=== PATIENT | female | born 1950 | race Caucasian/White ===

== ENCOUNTER 2020-10-03 11:29 | Outpatient (CLI) | payer MEDICARE, BC ==
--- NOTE | 2020-10-03 13:45 | MRI ---
MRI BRAIN WITH AND WITHOUT CONTRAST: DATE: 10/03/2020. HISTORY: A 70-year-old female with ICD-10: I61.9, hemorrhagic cerebrovascular accident. COMPARISON: No prior imaging study of any modality of any body part available. FINDINGS: There is an approximately 3.6 x 2.6 x 2.9 cm irregularly shaped hemorrhagic mass centered in the left basal ganglia, deeply indenting the frontal horn of the left lateral ventricle. It has a T1 hyperin tense and T2 hypointense (intracellular methemoglobin) rim, and a central component that is T1 interm ediate to hypointense, and mixed T2 hyperintense and hypointense, and mixed FLAIR hypointense and volodymyr y hyperintense (deoxyhemoglobin and/or necrosis). It is surrounded by a moderate-sized region of cyt otoxic edema. Very close to its lateral surface, there is a ribbon of T1 hyperintensity in the left insula consistent with petechial hemorrhage. Hemorrhage extends superior to the main hematoma into t he left centrum semiovale. The intrinsically T1 hyperintense areas are difficult to evaluate for enhancement. No enhancement ou tside of the intrinsically T1 hyperintense regions are noted. The ventricles are dilated, either on the basis of central atrophy or normal-pressure hydrocephalus. Confluent periventricular white matter FLAIR hyperintensity could all represent chronic ischemic whi te matter changes or a combination of such chronic changes and transependymal migration of CSF. No midline shift. There is a tiny focus of restricted diffusion in the left cerebellar hemisphere consistent with an ac lilian tiny lacunar infarction there. There is a 1 x 7 cm focus of mild-moderate T2 and FLAIR hyperintensity at the left thalamus, with no enhancement or diffusion restriction. IMPRESSION: 1. A moderately large left basal ganglia hemorrhagic mass, either primary hypertensive hemorrhage or less likely hemorrhagic neoplasm. 2. Recommend serial followup MRIs of the brain with and without contrast, beginning in 1-3 months. 3. A Punctate tiny acute left cerebellar lacunar infarction. 4. A 1 cm left thalamic lesion of uncertain etiology; perhaps a subacute lacunar infarction. DOUGLAS eLe POS: [facility]
== END 2020-10-03 11:30 | disposition home or self-care (01) ==
LOC: MRI 11:29
PROVIDERS: ATTEND Surgery
DX: I61.9 Nontraumatic intracerebral hemorrhage, unspecified (principal); Z20.828 Contact with and (suspected) exposure to other viral communicable diseases
CPT/HCPCS: 70553; 87635; C9803; U0003

== ENCOUNTER 2021-10-03 21:03 | Inpatient (IN) | payer MEDICARE, BC ==
[2021-10-03] MEDS ORDERED: Norepinephrine 8 MG/0.9% NS 250 ML ONE (21:11)
[2021-10-03] MEDS ORDERED: Vancomycin 1 GM/200 ML BAG ONE (21:33)
[2021-10-03] MEDS ORDERED: Cefepime 2 GM VIAL ONE (21:33)
[2021-10-03 21:53] LABS: ALT (SGPT) 21 U/L (8-55); AST (SGOT) 19 U/L (5-34); Albumin 3.1 g/dL (3.4-4.8); Alkaline Phosphatase 77 U/L (40-110); Anion Gap 16 mmol/L (10-20); BUN (Urea Nitrogen) 43 mg/dL (9.8-20.1); Bilirubin, Total 0.8 mg/dL (0.2-1.2); Calc. Creatinine Clearance 0 mL/min (70-130); Calcium 8.1 mg/dL (7.8-10.44); Carbon Dioxide 23 mmol/L (23-31); Chloride 115 mmol/L (98-107); Globulin 2.9 g/dL (2.4-3.5); Glucose 149 mg/dL (83-110); Potassium 3.9 mmol/L (3.5-5.1); Sodium 150 mmol/L (136-145)
[2021-10-03 22:08] LABS: Bacteria/HPF None Seen HPF (None Seen); Bilirubin Negative (Negative); Blood, Urine Negative (Negative); Clarity Turbid (Clear); Glucose, Urine (Dipstick) Normal (Negative); Ketone, Urine Negative (Negative); Leukocyte Negative Leu/uL (Negative); Nitrite Negative (Negative); Protein, Urine (Dipstick) 30 mg/dL (Neg-Trace); RBC/HPF 0-3 HPF (0-3); Specific Gravity, Urine 1.023 (1.002-1.036); Squamous Epithelial 0-3 HPF (0-3); Urobilinogen 3 mg/dL (Less than 2); WBC/HPF 0-3 HPF (0-3); pH, Urine 5.5 (5.0-9.0)
[2021-10-03 22:20] LABS: Band 22 % (5-11); Eosinophils 1 % (0-10); Hemoglobin 15.5 g/dL (12.0-16.0); Lymphocytes 4 % (21-51); MDiff Complete? YES; Mean Corpuscular HGB CONC 32.4 g/dL (32.0-36.0); Mean Corpuscular Hemoglobin 31.6 pg (27.0-31.0); Mean Corpuscular Volume 97.6 fL (78.0-98.0); Mean Platelet Volume 9.6 fL (7.4-10.4); Metamyelocyte 1 % (0-0); Monocytes 3 % (0-10); Neutrophil 69 % (42-75); Platelet Count 276 thou/uL (130-400); Platelet Morphology Comment Appears Adequate; RBC Distribution Width 14.3 % (11.5-14.5); RBC Morphology Normal; White Blood Cell (WBC) Count 15.7 thou/uL (4.8-10.8)
[2021-10-03 22:34] LABS: Calcium Oxalate Crystals 2+ HPF (None Seen)
[2021-10-03 22:52] LABS: SARS-CoV-2 NAA Rapid Test Not Detected (NotDetected)
[2021-10-03] MEDS ORDERED: Acetaminophen 650 MG Suppository ONE (23:09)
[2021-10-04 00:31] LABS: Lactic Acid 1.8 mmol/L (0.5-2.2)
[2021-10-04] MEDS ORDERED: Ondansetron ODT 4 MG TAB PO PRN (00:35)
[2021-10-04] MEDS ORDERED: Ondansetron PF 4 MG/2 ML Vial IVP PRN (00:35)
[2021-10-04] MEDS ORDERED: Acetaminophen 650 MG Suppository PR PRN (00:35)
[2021-10-04] MEDS ORDERED: Acetaminophen 325 MG TAB PO PRN (00:35)
[2021-10-04] MEDS ORDERED: Dextrose 5 % And 0.9 % NaCl 1,000 ML IV SCH (01:15)
[2021-10-04 01:22] VITALS: BMI 25.9
[2021-10-04] MEDS ORDERED: Norepinephrine 8 MG/0.9% NS 250 ML IVPB SCH (04:00)
[2021-10-04] MEDS ORDERED: Sodium Chloride 0.9% 1,000 ML IV SCH ×2 (04:00→04:15)
[2021-10-04 04:25] LABS: Anion Gap 16 mmol/L (10-20); BUN (Urea Nitrogen) 39 mg/dL (9.8-20.1); Calc. Creatinine Clearance 66 mL/min (70-130); Calcium 8.4 mg/dL (7.8-10.44); Carbon Dioxide 19 mmol/L (23-31); Chloride 116 mmol/L (98-107); Glucose 164 mg/dL (83-110); Potassium 3.7 mmol/L (3.5-5.1); Sodium 147 mmol/L (136-145)
[2021-10-04 04:29] LABS: Band 18 % (5-11); Hemoglobin 15.3 g/dL (12.0-16.0); Lymphocytes 6 % (21-51); MDiff Complete? YES; Mean Corpuscular HGB CONC 32.2 g/dL (32.0-36.0); Mean Corpuscular Hemoglobin 31.5 pg (27.0-31.0); Mean Corpuscular Volume 97.8 fL (78.0-98.0); Mean Platelet Volume 9.5 fL (7.4-10.4); Monocytes 5 % (0-10); Neutrophil 67 % (42-75); Platelet Count 231 thou/uL (130-400); Platelet Morphology Comment Appears Adequate; RBC Distribution Width 14.4 % (11.5-14.5); RBC Morphology Normal; Reactive Lymphocytes 4 % (0-10); Red Blood Cell (RBC) Count 4.86 mill/uL (4.20-5.40); White Blood Cell (WBC) Count 15.9 thou/uL (4.8-10.8)
[2021-10-04 04:48] LABS: Anion Gap 14 mmol/L (10-20); BUN (Urea Nitrogen) 36 mg/dL (9.8-20.1); Calc. Creatinine Clearance 69 mL/min (70-130); Calcium 8.2 mg/dL (7.8-10.44); Carbon Dioxide 17 mmol/L (23-31); Chloride 118 mmol/L (98-107); Glucose 164 mg/dL (83-110); Potassium 3.8 mmol/L (3.5-5.1); Sodium 145 mmol/L (136-145)
[2021-10-04] MEDS ORDERED: Senokot S 8.6-50 MG TAB PO PRN (08:59)
[2021-10-04] MEDS ORDERED: Bisacodyl 10 MG SUPP PR PRN (08:59)
[2021-10-04] MEDS ORDERED: Enoxaparin Sodium 40 MG/0.4 ML SYRINGE SC SCH (09:00)
[2021-10-04] MEDS ORDERED: VANCOMYCIN 1.25 GM/250 ML BAG 1.25 GM in Premix Bag 1 BAG IVPB SCH (09:00)
[2021-10-04] MEDS: Cefepime 2 GM in Sodium Chloride 0.9% 100 ML IVPB SCH ×2 (09:12→21:21)
[2021-10-04] MEDS ORDERED: Pantoprazole 40 MG VIAL IVP SCH (09:15)
[2021-10-04] MEDS: Hydrocortisone Sod Succ/PF 100 mg/2 ml Vial IVP SCH ×3 (09:58→21:22)
[2021-10-04 10:07] LABS: Troponin I 0.029 ng/mL (< 0.028)
[2021-10-04 10:08] LABS: CKMB 3.4 ng/mL (0-6.6)
[2021-10-04] MEDS: Clindamycin/D5W 600 MG in Premix Bag 1 BAG IVPB SCH ×2 (11:59→16:54)
[2021-10-04] MEDS: Sodium Chloride 0.9% 1,000 ML IV SCH (16:55)
[2021-10-04] MEDS: Enoxaparin Sodium 40 MG/0.4 ML SYRINGE SC SCH (21:22)
[2021-10-04] MEDS: Sodium Bicarbonate Tab 325 MG TAB PO SCH (21:23)
[2021-10-04] MEDS: Amiodarone 200 MG TAB PER TUBE SCH (21:23)
[2021-10-05] MEDS: Vancomycin 1 GM in Premix Bag 1 BAG IVPB SCH (00:05)
[2021-10-05] MEDS: Hydrocortisone Sod Succ/PF 100 mg/2 ml Vial IVP SCH ×4 (05:05→22:46)
[2021-10-05] MEDS: Sodium Chloride 0.9% 1,000 ML IV SCH (06:28)
[2021-10-05] MEDS: Clindamycin/D5W 600 MG in Premix Bag 1 BAG IVPB SCH ×4 (06:28→16:46)
[2021-10-05 07:39] LABS: #Lymphocytes 0.7 thou/uL (1.20-3.40); #Monocytes 0.4 thou/uL (0.11-0.59); #Neutrophils 6.2 thou/uL (1.40-6.50); %Eosinophils 0.2 % (0.0-10.0); %Lymphocytes 9.5 % (21.0-51.0); %Monocytes 5.8 % (0.0-10.0); %Neutrophils 84.5 % (42.0-75.0); Mean Corpuscular HGB CONC 31.4 g/dL (32.0-36.0); Mean Corpuscular Hemoglobin 31.2 pg (27.0-31.0); Mean Corpuscular Volume 99.1 fL (78.0-98.0); Mean Platelet Volume 9.7 fL (7.4-10.4); Platelet Count 176 thou/uL (130-400); RBC Distribution Width 14.1 % (11.5-14.5); Red Blood Cell (RBC) Count 4.18 mill/uL (4.20-5.40); White Blood Cell (WBC) Count 7.3 thou/uL (4.8-10.8)
[2021-10-05 07:43] LABS: ALT (SGPT) 19 U/L (8-55); AST (SGOT) 21 U/L (5-34); Albumin 2.8 g/dL (3.4-4.8); Alkaline Phosphatase 75 U/L (40-110); Anion Gap 10 mmol/L (10-20); BUN (Urea Nitrogen) 32 mg/dL (9.8-20.1); Bilirubin, Total 0.3 mg/dL (0.2-1.2); CRP (Inflammatory) 19.15 mg/dL (= or < 0.5); Calc. Creatinine Clearance 94 mL/min (70-130); Calcium 8.7 mg/dL (7.8-10.44); Carbon Dioxide 23 mmol/L (23-31); Chloride 122 mmol/L (98-107); Globulin 2.8 g/dL (2.4-3.5); Glucose 110 mg/dL (83-110); Magnesium 2.5 mg/dL (1.6-2.6); Phosphorus 2.1 mg/dL (2.3-4.7); Potassium 3.5 mmol/L (3.5-5.1); Protein, Total 5.6 g/dL (5.8-8.1); Sodium 151 mmol/L (136-145)
[2021-10-05] MEDS: Cefepime 2 GM in Sodium Chloride 0.9% 100 ML IVPB SCH ×2 (08:26→22:45)
[2021-10-05] MEDS: Enoxaparin Sodium 40 MG/0.4 ML SYRINGE SC SCH ×2 (08:30→22:46)
[2021-10-05] MEDS: Saccharomyces boulardii 250 MG CAP PO SCH (08:30)
[2021-10-05] MEDS: Sodium Bicarbonate Tab 325 MG TAB PO SCH ×2 (08:30→22:44)
[2021-10-05] MEDS: Dextrose 5% in Water 1,000 ML IV SCH (09:58)
[2021-10-05] MEDS: Pantoprazole 40 MG VIAL IVP SCH (10:24)
[2021-10-05] MEDS: Amiodarone 200 MG TAB PER TUBE SCH (22:44)
[2021-10-05 23:22] LABS: Vancomycin, Trough 8.6 ug/mL
[2021-10-06] MEDS: Clindamycin/D5W 600 MG in Premix Bag 1 BAG IVPB SCH ×5 (00:57→23:38)
[2021-10-06] MEDS ORDERED: Vancomycin HCl 750 MG in Sodium Chloride 0.9% 250 ML 250 ML IVPB SCH ×2 (01:00→02:00)
[2021-10-06] MEDS: Dextrose 5% in Water 1,000 ML IV SCH ×3 (01:32→21:11)
[2021-10-06] MEDS: Vancomycin 1 GM in Premix Bag 1 BAG IVPB SCH (01:33)
[2021-10-06] MEDS: Hydrocortisone Sod Succ/PF 100 mg/2 ml Vial IVP SCH ×4 (05:00→23:36)
[2021-10-06 07:07] LABS: Anion Gap 11 mmol/L (10-20); BUN (Urea Nitrogen) 30 mg/dL (9.8-20.1); Calc. Creatinine Clearance 103 mL/min (70-130); Calcium 8.3 mg/dL (7.8-10.44); Carbon Dioxide 22 mmol/L (23-31); Chloride 117 mmol/L (98-107); Glucose 111 mg/dL (83-110); Potassium 3.1 mmol/L (3.5-5.1); Sodium 147 mmol/L (136-145)
[2021-10-06] MEDS: Enoxaparin Sodium 40 MG/0.4 ML SYRINGE SC SCH ×2 (08:51→21:12)
[2021-10-06] MEDS: Cefepime 2 GM in Sodium Chloride 0.9% 100 ML IVPB SCH ×2 (08:51→21:11)
[2021-10-06] MEDS: Saccharomyces boulardii 250 MG CAP PO SCH (08:52)
[2021-10-06] MEDS: Sodium Bicarbonate Tab 325 MG TAB PO SCH ×2 (08:52→21:13)
[2021-10-06] MEDS: Pantoprazole 40 MG VIAL IVP SCH (09:03)
[2021-10-06] MEDS: Amiodarone 200 MG TAB PER TUBE SCH (21:13)
[2021-10-07] MEDS: Dextrose 5% in Water 1,000 ML IV SCH ×2 (00:59→19:59)
[2021-10-07] MEDS: Clindamycin/D5W 600 MG in Premix Bag 1 BAG IVPB SCH ×3 (05:09→17:24)
[2021-10-07 06:54] LABS: Anion Gap 11 mmol/L (10-20); BUN (Urea Nitrogen) 29 mg/dL (9.8-20.1); Calc. Creatinine Clearance 99 mL/min (70-130); Calcium 8.1 mg/dL (7.8-10.44); Carbon Dioxide 23 mmol/L (23-31); Chloride 111 mmol/L (98-107); Glucose 118 mg/dL (83-110); Potassium 3.3 mmol/L (3.5-5.1); Sodium 142 mmol/L (136-145)
[2021-10-07] MEDS: Cefepime 2 GM in Sodium Chloride 0.9% 100 ML IVPB SCH ×2 (08:47→20:01)
[2021-10-07] MEDS: Enoxaparin Sodium 40 MG/0.4 ML SYRINGE SC SCH ×2 (08:48→20:01)
[2021-10-07] MEDS: Saccharomyces boulardii 250 MG CAP PO SCH (08:48)
[2021-10-07] MEDS: Sodium Bicarbonate Tab 325 MG TAB PO SCH ×2 (08:48→20:02)
[2021-10-07] MEDS ORDERED: FLU VACC QS2021-22(65YR UP)/PF 240 MCG/0.7 ML SYRINGE IM ONE (09:00)
[2021-10-07] MEDS: Hydrocortisone Sod Succ/PF 100 mg/2 ml Vial IVP SCH (11:18)
[2021-10-07] MEDS: Pantoprazole 40 MG VIAL IVP SCH (11:18)
[2021-10-07] MEDS: Amiodarone 200 MG TAB PER TUBE SCH (20:01)
[2021-10-08] MEDS: Clindamycin/D5W 600 MG in Premix Bag 1 BAG IVPB SCH ×3 (00:04→10:56)
[2021-10-08] MEDS: Cefepime 2 GM in Sodium Chloride 0.9% 100 ML IVPB SCH (08:36)
[2021-10-08] MEDS: Pantoprazole 40 MG VIAL IVP SCH (08:36)
[2021-10-08] MEDS: Enoxaparin Sodium 40 MG/0.4 ML SYRINGE SC SCH (08:36)
[2021-10-08] MEDS: Saccharomyces boulardii 250 MG CAP PO SCH (08:37)
[2021-10-08] MEDS: Sodium Bicarbonate Tab 325 MG TAB PO SCH (08:37)
[2021-10-08] MEDS ORDERED: Hydrocortisone Sod Succ/PF 100 mg/2 ml Vial IVP SCH (09:00)
[2021-10-08 09:13] VITALS: BP 104/66; TEMP 97.6
== END 2021-10-08 14:40 | DRG 871 ==
LOC: ERS 21:03 → CCU 23:34 → T4-A 10-04 17:55
PROVIDERS: ADMIT Student in an Organized Health Care Education/Training Program; ATTEND Family Medicine
PROC: 3E033XZ Introduction of Vasopressor into Peripheral Vein, Percutaneous Approach (ICD-10-PCS; principal; 2021-10-03)
DX: A41.9 Sepsis, unspecified organism (principal); R65.21 Severe sepsis with septic shock; G92.8 Other toxic encephalopathy; J69.0 Pneumonitis due to inhalation of food and vomit; E87.0 Hyperosmolality and hypernatremia; I69.351 Hemiplegia and hemiparesis following cerebral infarction affecting right dominant side; E44.0 Moderate protein-calorie malnutrition; I48.20 Chronic atrial fibrillation, unspecified; N17.9 Acute kidney failure, unspecified; Z20.822 Contact with and (suspected) exposure to COVID-19; I69.320 Aphasia following cerebral infarction; E86.0 Dehydration; Z66 Do not resuscitate; N18.2 Chronic kidney disease, stage 2 (mild); R13.10 Dysphagia, unspecified; I12.9 Hypertensive chronic kidney disease with stage 1 through stage 4 chronic kidney disease, or unspecified chronic kidney disease; Z93.1 Gastrostomy status; Z68.25 Body mass index [BMI] 25.0-25.9, adult; I69.321 Dysphasia following cerebral infarction; Z86.16 Personal history of COVID-19
CPT/HCPCS: 36415; 36416; 70450; 71045; 80048; 80053; 80202; 81003; 81015; 82550; 82553; 83605; 83735; 84100; 84484; 85025; 85379; 86140; 87040; 87086; 93005; 93970; C9113; J0692; J1650; J1720; J3370; J3490; J7042; J7050; J7070; U0002

== ENCOUNTER 2021-12-17 13:19 | Emergency (ER) | payer MEDICARE ==
[2021-12-17 14:33] LABS: Hemoglobin 13.9 g/dL (12.0-16.0); Mean Corpuscular HGB CONC 32.4 g/dL (32.0-36.0); Mean Corpuscular Hemoglobin 29.8 pg (27.0-31.0); Mean Corpuscular Volume 91.9 fL (78.0-98.0); Mean Platelet Volume 7.5 fL (7.4-10.4); Platelet Count 312 thou/uL (130-400); RBC Distribution Width 13.8 % (11.5-14.5); Red Blood Cell (RBC) Count 4.68 mill/uL (4.20-5.40); White Blood Cell (WBC) Count 10.2 thou/uL (4.8-10.8)
[2021-12-17 14:57] LABS: Band 1 % (5-11); Eosinophils 2 % (0-10); Lymphocytes 10 % (21-51); MDiff Complete? YES; Monocytes 7 % (0-10); Neutrophil 78 % (42-75); Platelet Morphology Comment Appears Adequate; RBC Morphology Normal; Reactive Lymphocytes 1 % (0-10)
[2021-12-17 15:39] LABS: AST (SGOT) 20 U/L (5-34); Anion Gap 18 mmol/L (10-20); Bilirubin, Total 0.4 mg/dL (0.2-1.2); Calc. Creatinine Clearance 0 mL/min (70-130); Carbon Dioxide 19 mmol/L (23-31); Chloride 102 mmol/L (98-107); Potassium 4.3 mmol/L (3.5-5.1); Protein, Total 6.8 g/dL (5.8-8.1); Sodium 135 mmol/L (136-145)
[2021-12-17 16:26] LABS: Albumin 3.3 g/dL (3.4-4.8); Globulin 3.5 g/dL (2.4-3.5)
[2021-12-17 16:28] LABS: Glucose 88 mg/dL (83-110)
[2021-12-17 16:31] LABS: Alkaline Phosphatase 92 U/L (40-110)
[2021-12-17 16:32] LABS: BUN (Urea Nitrogen) 13 mg/dL (9.8-20.1)
[2021-12-17 16:34] LABS: ALT (SGPT) 12 U/L (8-55)
== END 2021-12-17 18:26 | disposition home or self-care (01) ==
LOC: ERS 13:19
DX: N39.0 Urinary tract infection, site not specified (principal); I69.351 Hemiplegia and hemiparesis following cerebral infarction affecting right dominant side; I10 Essential (primary) hypertension; I48.91 Unspecified atrial fibrillation; Z99.2 Dependence on renal dialysis; Z79.899 Other long term (current) drug therapy
CPT/HCPCS: 36415; 51702; 71045; 80053; 83605; 85025

== ENCOUNTER 2022-04-16 23:24 | Emergency (ER) | payer MEDICARE, BC | END 2022-04-17 01:25 | LOC: ERS 23:24 | DX: K94.23 Gastrostomy malfunction (principal); I10 Essential (primary) hypertension; I48.91 Unspecified atrial fibrillation | CPT/HCPCS: 99283 ==

== ENCOUNTER 2022-04-17 03:31 | Inpatient (IN) | payer MEDICARE, BC ==
[2022-04-17] MEDS ORDERED: Cefepime 2 GM VIAL ONE (03:48)
[2022-04-17] MEDS ORDERED: Acetaminophen 650 MG Suppository ONE (03:48)
[2022-04-17] MEDS ORDERED: Ondansetron PF 4 MG/2 ML Vial ONE (04:24)
[2022-04-17 04:45] LABS: Hemoglobin 15.7 g/dL (12.0-16.0); Mean Corpuscular Hemoglobin 29.7 pg (27.0-31.0); Mean Corpuscular Volume 92.8 fL (78.0-98.0); RBC Distribution Width 13.8 % (11.5-14.5); White Blood Cell (WBC) Count 12.5 thou/uL (4.8-10.8)
[2022-04-17 04:57] LABS: Bilirubin Negative (Negative); Blood, Urine Negative (Negative); Clarity Extra Turbid (Clear); Glucose, Urine (Dipstick) Normal (Negative); Ketone, Urine Negative (Negative); Leukocyte 500 Leu/uL (Negative); Nitrite Negative (Negative); Protein, Urine (Dipstick) 50 mg/dL (Neg-Trace); Specific Gravity, Urine 1.014 (1.002-1.036); Urobilinogen Normal mg/dL (Less than 2)
[2022-04-17] MEDS ORDERED: Vancomycin 1 GM/200 ML BAG ONE (04:58)
[2022-04-17 05:03] LABS: RBC/HPF 0-3 HPF (0-3)
[2022-04-17 05:04] LABS: Bacteria/HPF 1+ HPF (None Seen); Squamous Epithelial 0-3 HPF (0-3)
[2022-04-17 05:15] LABS: Band 26 % (5-11); Lymphocytes 4 % (21-51); MDiff Complete? YES; Mean Platelet Volume 7.5 fL (7.4-10.4); Monocytes 2 % (0-10); Neutrophil 68 % (42-75); Platelet Count 505 thou/uL (130-400)
[2022-04-17 05:19] LABS: AST (SGOT) 21 U/L (5-34); Bilirubin, Total 0.6 mg/dL (0.2-1.2); Carbon Dioxide 18 mmol/L (23-31); Chloride 99 mmol/L (98-107); Globulin 4.1 g/dL (2.4-3.5); Potassium 5.1 mmol/L (3.5-5.1); Protein, Total 7.9 g/dL (5.8-8.1); Sodium 135 mmol/L (136-145)
[2022-04-17 05:29] LABS: ALT (SGPT) 14 U/L (8-55); Albumin 3.6 g/dL (3.4-4.8); Alkaline Phosphatase 117 U/L (40-110); Anion Gap 25 mmol/L (10-20); BUN (Urea Nitrogen) 17 mg/dL (9.8-20.1); Calc. Creatinine Clearance 0 mL/min (70-130); Calcium 8.6 mg/dL (7.8-10.44); Glucose 210 mg/dL (83-110); Lipase 18 U/L (8-78)
[2022-04-17] MEDS ORDERED: Clindamycin/D5W 900 mg/50 ml Premix Bag ONE (06:14)
[2022-04-17] MEDS: Dextrose 5%-Lactated Ringers 1,000 ML IV SCH ×2 (09:59→23:32)
[2022-04-17] MEDS ORDERED: Piperacillin/Tazobactam 3.375 GM in Sodium Chloride 0.9% 100 ML IVPB SCH (10:00)
[2022-04-17] MEDS ORDERED: Ondansetron ODT 4 MG TAB PO PRN (10:20)
[2022-04-17] MEDS ORDERED: Acetaminophen 325 MG TAB PO PRN (10:20)
[2022-04-17] MEDS ORDERED: Ondansetron PF 4 MG/2 ML Vial IVP PRN (10:20)
[2022-04-17] MEDS ORDERED: Sodium Chloride 0.9% 1,000 ML IV SCH (10:30)
[2022-04-17] MEDS: Enoxaparin Sodium 40 MG/0.4 ML SYRINGE SC SCH (10:56)
[2022-04-17] MEDS: Famotidine/PF 20 mg/2ml Vial SLOW IVP SCH ×2 (10:56→20:35)
[2022-04-17] MEDS: Acetaminophen 650 MG Suppository PR PRN (14:33)
[2022-04-17] MEDS ORDERED: Iopamidol 370 76% 100 ML VIAL ONE (15:33)
[2022-04-17] MEDS ORDERED: Sodium Chloride 0.9% 500 ML IVPB SCH (16:00)
[2022-04-17] MEDS: Piperacillin/Tazobactam 3.375 GM in Sodium Chloride 0.9% 100 ML IVPB SCH (18:28)
[2022-04-17] MEDS ORDERED: Sodium Chloride 0.9% 500 ML IV SCH ×2 (18:45→23:15)
[2022-04-18] MEDS: Acetaminophen 650 MG Suppository PR PRN (01:11)
[2022-04-18] MEDS: Piperacillin/Tazobactam 3.375 GM in Sodium Chloride 0.9% 100 ML IVPB SCH ×3 (01:40→21:49)
[2022-04-18 04:16] LABS: #Lymphocytes 0.9 thou/uL (1.20-3.40); #Monocytes 0.3 thou/uL (0.11-0.59); #Neutrophils 10.7 thou/uL (1.40-6.50); %Eosinophils 0.3 % (0.0-10.0); %Lymphocytes 7.6 % (21.0-51.0); %Monocytes 2.4 % (0.0-10.0); %Neutrophils 89.7 % (42.0-75.0); Hemoglobin 11.2 g/dL (12.0-16.0); Mean Corpuscular HGB CONC 32.3 g/dL (32.0-36.0); Mean Corpuscular Hemoglobin 30.5 pg (27.0-31.0); Mean Corpuscular Volume 94.5 fL (78.0-98.0); Mean Platelet Volume 7.2 fL (7.4-10.4); Platelet Count 290 thou/uL (130-400); RBC Distribution Width 13.5 % (11.5-14.5); Red Blood Cell (RBC) Count 3.66 mill/uL (4.20-5.40); White Blood Cell (WBC) Count 11.9 thou/uL (4.8-10.8)
[2022-04-18 04:22] LABS: Anion Gap 11 mmol/L (10-20); BUN (Urea Nitrogen) 18 mg/dL (9.8-20.1); Calc. Creatinine Clearance 86 mL/min (70-130); Calcium 8.3 mg/dL (7.8-10.44); Carbon Dioxide 21 mmol/L (23-31); Chloride 113 mmol/L (98-107); Glucose 109 mg/dL (83-110); Potassium 3.5 mmol/L (3.5-5.1); Sodium 141 mmol/L (136-145)
[2022-04-18] MEDS: Dextrose 5%-Lactated Ringers 1,000 ML IV SCH ×3 (04:58→22:28)
[2022-04-18] MEDS ORDERED: Lidocaine 1% w/Epinephrine 1:100K 30 ML VIAL NERVE BLCK SCH (08:30)
[2022-04-18] MEDS: Famotidine/PF 20 mg/2ml Vial SLOW IVP SCH ×2 (10:20→20:53)
[2022-04-18] MEDS: Enoxaparin Sodium 40 MG/0.4 ML SYRINGE SC SCH (12:19)
[2022-04-18] MEDS: Potassium Chloride 40 MEQ in Premix Bag 1 BAG IVPB SCH ×2 (12:30→15:57)
[2022-04-18] MEDS: Morphine 2 MG/ML VIAL SLOW IVP PRN (14:42)
[2022-04-18] MEDS: Potassium Chloride 20 MEQ in Premix Bag 1 BAG IVPB SCH ×2 (16:53→19:15)
[2022-04-19] MEDS: Piperacillin/Tazobactam 3.375 GM in Sodium Chloride 0.9% 100 ML IVPB SCH ×3 (01:50→17:16)
[2022-04-19 04:32] LABS: #Lymphocytes 0.8 thou/uL (1.20-3.40); #Monocytes 0.2 thou/uL (0.11-0.59); #Neutrophils 9.5 thou/uL (1.40-6.50); %Basophils 0.2 % (0.0-1.0); %Eosinophils 0.4 % (0.0-10.0); %Lymphocytes 7.1 % (21.0-51.0); %Monocytes 2.3 % (0.0-10.0); Hemoglobin 9.9 g/dL (12.0-16.0); Mean Corpuscular HGB CONC 32.4 g/dL (32.0-36.0); Mean Corpuscular Hemoglobin 30.6 pg (27.0-31.0); Mean Corpuscular Volume 94.3 fL (78.0-98.0); Mean Platelet Volume 7.5 fL (7.4-10.4); Platelet Count 291 thou/uL (130-400); RBC Distribution Width 13.6 % (11.5-14.5); Red Blood Cell (RBC) Count 3.22 mill/uL (4.20-5.40); White Blood Cell (WBC) Count 10.5 thou/uL (4.8-10.8)
[2022-04-19 04:51] LABS: Anion Gap 10 mmol/L (10-20); BUN (Urea Nitrogen) 12 mg/dL (9.8-20.1); Calc. Creatinine Clearance 101 mL/min (70-130); Calcium 7.7 mg/dL (7.8-10.44); Carbon Dioxide 22 mmol/L (23-31); Chloride 115 mmol/L (98-107); Glucose 125 mg/dL (83-110); Potassium 3.3 mmol/L (3.5-5.1); Sodium 144 mmol/L (136-145)
[2022-04-19] MEDS: Dextrose 5%-Lactated Ringers 1,000 ML IV SCH ×3 (06:20→23:59)
[2022-04-19] MEDS ORDERED: Potassium Chloride 40 MEQ in Premix Bag 1 BAG IVPB SCH (09:00)
[2022-04-19] MEDS: Potassium Chloride 20 MEQ in Premix Bag 1 BAG IVPB SCH ×2 (09:50→12:12)
[2022-04-19] MEDS: Enoxaparin Sodium 40 MG/0.4 ML SYRINGE SC SCH (09:52)
[2022-04-19] MEDS: Famotidine/PF 20 mg/2ml Vial SLOW IVP SCH ×2 (09:52→22:17)
[2022-04-19] MEDS ORDERED: Bisacodyl 10 MG SUPP PR PRN (15:42)
[2022-04-19] MEDS ORDERED: Magnesium 2 GM/50 ML(in water) 2 GM in Premix Bag 1 BAG IVPB SCH (16:00)
[2022-04-20] MEDS: Piperacillin/Tazobactam 3.375 GM in Sodium Chloride 0.9% 100 ML IVPB SCH ×3 (02:16→18:11)
[2022-04-20] MEDS: Dextrose 5%-Lactated Ringers 1,000 ML IV SCH ×3 (02:16→22:25)
[2022-04-20 04:27] LABS: #Eosinphils 0.3 thou/uL (0.0-0.7); #Lymphocytes 0.9 thou/uL (1.20-3.40); #Monocytes 0.3 thou/uL (0.11-0.59); #Neutrophils 6.5 thou/uL (1.40-6.50); %Basophils 0.3 % (0.0-1.0); %Eosinophils 3.3 % (0.0-10.0); %Lymphocytes 10.9 % (21.0-51.0); %Monocytes 4.2 % (0.0-10.0); %Neutrophils 81.4 % (42.0-75.0); Hemoglobin 11.4 g/dL (12.0-16.0); Mean Corpuscular HGB CONC 32.8 g/dL (32.0-36.0); Mean Corpuscular Hemoglobin 30.8 pg (27.0-31.0); Mean Platelet Volume 7.5 fL (7.4-10.4); Platelet Count 307 thou/uL (130-400); RBC Distribution Width 13.7 % (11.5-14.5); Red Blood Cell (RBC) Count 3.68 mill/uL (4.20-5.40)
[2022-04-20 04:52] LABS: Anion Gap 9 mmol/L (10-20); BUN (Urea Nitrogen) 8 mg/dL (9.8-20.1); Calc. Creatinine Clearance 107 mL/min (70-130); Calcium 8.1 mg/dL (7.8-10.44); Carbon Dioxide 21 mmol/L (23-31); Chloride 111 mmol/L (98-107); Glucose 143 mg/dL (83-110); Magnesium 2.2 mg/dL (1.6-2.6); Potassium 3.4 mmol/L (3.5-5.1); Sodium 138 mmol/L (136-145)
[2022-04-20 04:55] LABS: Phosphorus 1.8 mg/dL (2.3-4.7)
[2022-04-20] MEDS ORDERED: Electrolyte Replacement Protocol 1 EACH FS SCH (05:45)
[2022-04-20] MEDS ORDERED: Potassium Bicarbonate/Cit Ac 20 MEQ TAB PER TUBE SCH (06:00)
[2022-04-20] MEDS: PHOS-NAK 1 PKT PACK PER TUBE SCH ×2 (06:45→10:28)
[2022-04-20] MEDS ORDERED: Potassium Phosphate 30 MMOL in Sodium Chloride 0.9% 250 ML 250 ML IVPB SCH (08:00)
[2022-04-20] MEDS ORDERED: Polyethylene Glycol 3350 17 GM Packet PER TUBE SCH (09:00)
[2022-04-20] MEDS ORDERED: Potassium Chloride 20 MEQ TAB PO SCH (09:30)
[2022-04-20] MEDS: Famotidine/PF 20 mg/2ml Vial SLOW IVP SCH ×3 (10:27→23:24)
[2022-04-20] MEDS: Enoxaparin Sodium 40 MG/0.4 ML SYRINGE SC SCH (10:28)
[2022-04-21] MEDS: Piperacillin/Tazobactam 3.375 GM in Sodium Chloride 0.9% 100 ML IVPB SCH ×3 (01:44→17:50)
[2022-04-21 04:51] LABS: #Eosinphils 0.4 thou/uL (0.0-0.7); #Monocytes 0.5 thou/uL (0.11-0.59); #Neutrophils 3.8 thou/uL (1.40-6.50); %Eosinophils 7.4 % (0.0-10.0); %Lymphocytes 16.7 % (21.0-51.0); %Monocytes 9.2 % (0.0-10.0); %Neutrophils 66.7 % (42.0-75.0); Hemoglobin 10.8 g/dL (12.0-16.0); Mean Corpuscular HGB CONC 32.6 g/dL (32.0-36.0); Mean Corpuscular Hemoglobin 31.1 pg (27.0-31.0); Mean Corpuscular Volume 95.4 fL (78.0-98.0); Mean Platelet Volume 7.6 fL (7.4-10.4); Platelet Count 311 thou/uL (130-400); RBC Distribution Width 13.6 % (11.5-14.5); Red Blood Cell (RBC) Count 3.47 mill/uL (4.20-5.40); White Blood Cell (WBC) Count 5.7 thou/uL (4.8-10.8)
[2022-04-21 05:19] LABS: Anion Gap 11 mmol/L (10-20); BUN (Urea Nitrogen) 8 mg/dL (9.8-20.1); Calc. Creatinine Clearance 114 mL/min (70-130); Calcium 8.1 mg/dL (7.8-10.44); Carbon Dioxide 23 mmol/L (23-31); Chloride 111 mmol/L (98-107); Glucose 110 mg/dL (83-110); Potassium 3.8 mmol/L (3.5-5.1); Sodium 141 mmol/L (136-145)
[2022-04-21] MEDS: Dextrose 5%-Lactated Ringers 1,000 ML IV SCH ×2 (06:26→17:50)
[2022-04-21] MEDS: Enoxaparin Sodium 40 MG/0.4 ML SYRINGE SC SCH (09:30)
[2022-04-21] MEDS: Famotidine/PF 20 mg/2ml Vial SLOW IVP SCH ×2 (09:30→20:44)
[2022-04-21] MEDS: Morphine 2 MG/ML VIAL SLOW IVP PRN (09:31)
[2022-04-22] MEDS: Piperacillin/Tazobactam 3.375 GM in Sodium Chloride 0.9% 100 ML IVPB SCH ×3 (02:49→18:15)
[2022-04-22] MEDS: Dextrose 5%-Lactated Ringers 1,000 ML IV SCH ×2 (02:52→12:38)
[2022-04-22] MEDS: Morphine 2 MG/ML VIAL SLOW IVP PRN (09:52)
[2022-04-22] MEDS: Famotidine/PF 20 mg/2ml Vial SLOW IVP SCH ×2 (10:31→20:23)
[2022-04-22] MEDS: Enoxaparin Sodium 40 MG/0.4 ML SYRINGE SC SCH (10:31)
[2022-04-23] MEDS: Piperacillin/Tazobactam 3.375 GM in Sodium Chloride 0.9% 100 ML IVPB SCH ×3 (02:57→17:25)
[2022-04-23] MEDS: Dextrose 5%-Lactated Ringers 1,000 ML IV SCH ×2 (02:59→15:00)
[2022-04-23] MEDS: Famotidine/PF 20 mg/2ml Vial SLOW IVP SCH ×2 (09:35→20:49)
[2022-04-23] MEDS: Enoxaparin Sodium 40 MG/0.4 ML SYRINGE SC SCH (09:35)
[2022-04-24] MEDS: Piperacillin/Tazobactam 3.375 GM in Sodium Chloride 0.9% 100 ML IVPB SCH ×3 (03:33→18:01)
[2022-04-24] MEDS: Enoxaparin Sodium 40 MG/0.4 ML SYRINGE SC SCH (09:37)
[2022-04-24] MEDS: Morphine 2 MG/ML VIAL SLOW IVP PRN (09:38)
[2022-04-24] MEDS: Famotidine/PF 20 mg/2ml Vial SLOW IVP SCH (09:39)
[2022-04-24] MEDS: Famotidine 40 MG/4 ML VIAL SLOW IVP SCH (21:45)
[2022-04-25] MEDS: Piperacillin/Tazobactam 3.375 GM in Sodium Chloride 0.9% 100 ML IVPB SCH ×2 (02:33→11:00)
[2022-04-25 04:35] LABS: #Eosinphils 0.4 thou/uL (0.0-0.7); #Lymphocytes 1.5 thou/uL (1.20-3.40); #Monocytes 0.7 thou/uL (0.11-0.59); #Neutrophils 5.7 thou/uL (1.40-6.50); %Basophils 0.3 % (0.0-1.0); %Eosinophils 5.3 % (0.0-10.0); %Lymphocytes 17.8 % (21.0-51.0); %Neutrophils 68.5 % (42.0-75.0); Hemoglobin 11.5 g/dL (12.0-16.0); Mean Corpuscular HGB CONC 32.6 g/dL (32.0-36.0); Mean Corpuscular Hemoglobin 29.8 pg (27.0-31.0); Mean Corpuscular Volume 91.4 fL (78.0-98.0); Mean Platelet Volume 6.8 fL (7.4-10.4); Platelet Count 390 thou/uL (130-400); RBC Distribution Width 13.9 % (11.5-14.5); Red Blood Cell (RBC) Count 3.86 mill/uL (4.20-5.40); White Blood Cell (WBC) Count 8.4 thou/uL (4.8-10.8)
[2022-04-25 05:01] LABS: Anion Gap 11 mmol/L (10-20); BUN (Urea Nitrogen) 14 mg/dL (9.8-20.1); CRP (Inflammatory) 4.05 mg/dL (= or < 0.5); Calc. Creatinine Clearance 105 mL/min (70-130); Calcium 8.7 mg/dL (7.8-10.44); Carbon Dioxide 24 mmol/L (23-31); Chloride 108 mmol/L (98-107); Glucose 100 mg/dL (83-110); Potassium 4.1 mmol/L (3.5-5.1); Sodium 139 mmol/L (136-145)
[2022-04-25] MEDS: Famotidine 40 MG/4 ML VIAL SLOW IVP SCH ×2 (09:33→22:21)
[2022-04-25] MEDS: Enoxaparin Sodium 40 MG/0.4 ML SYRINGE SC SCH (09:37)
[2022-04-26 07:23] LABS: #Eosinphils 0.3 thou/uL (0.0-0.7); #Lymphocytes 1.2 thou/uL (1.20-3.40); #Monocytes 0.5 thou/uL (0.11-0.59); #Neutrophils 5.8 thou/uL (1.40-6.50); %Basophils 0.3 % (0.0-1.0); %Eosinophils 3.6 % (0.0-10.0); %Lymphocytes 14.8 % (21.0-51.0); %Monocytes 6.9 % (0.0-10.0); %Neutrophils 74.4 % (42.0-75.0); Hemoglobin 12.4 g/dL (12.0-16.0); Mean Corpuscular HGB CONC 31.4 g/dL (32.0-36.0); Mean Corpuscular Hemoglobin 29.6 pg (27.0-31.0); Mean Corpuscular Volume 94.3 fL (78.0-98.0); Mean Platelet Volume 7.1 fL (7.4-10.4); Platelet Count 407 thou/uL (130-400); Red Blood Cell (RBC) Count 4.19 mill/uL (4.20-5.40); White Blood Cell (WBC) Count 7.8 thou/uL (4.8-10.8)
[2022-04-26 07:41] LABS: Anion Gap 11 mmol/L (10-20); BUN (Urea Nitrogen) 17 mg/dL (9.8-20.1); CRP (Inflammatory) 4.95 mg/dL (= or < 0.5); Calc. Creatinine Clearance 97 mL/min (70-130); Calcium 8.9 mg/dL (7.8-10.44); Carbon Dioxide 24 mmol/L (23-31); Chloride 107 mmol/L (98-107); Glucose 120 mg/dL (83-110); Potassium 4.3 mmol/L (3.5-5.1); Sodium 138 mmol/L (136-145)
[2022-04-26] MEDS: Famotidine 40 MG/4 ML VIAL SLOW IVP SCH ×2 (08:28→21:46)
[2022-04-26] MEDS: Enoxaparin Sodium 40 MG/0.4 ML SYRINGE SC SCH (08:28)
[2022-04-26] MEDS ORDERED: Iopamidol 370 76% 100 ML VIAL ONE (08:47)
[2022-04-26] MEDS ORDERED: GUAIFENESIN SF SOLN 200 MG/10 ML UDCUP PER TUBE PRN (09:04)
[2022-04-26] MEDS ORDERED: Docusate Sodium 100 MG/10 ML UDCUP PER TUBE SCH ×2 (21:00)
[2022-04-26] MEDS: Amiodarone 200 MG TAB PER TUBE SCH (21:48)
[2022-04-27 06:31] LABS: Prothrombin Time 13.7 sec (12.0-14.7)
[2022-04-27 06:34] LABS: #Eosinphils 0.2 thou/uL (0.0-0.7); #Monocytes 0.5 thou/uL (0.11-0.59); #Neutrophils 6.8 thou/uL (1.40-6.50); %Basophils 0.1 % (0.0-1.0); %Eosinophils 2.6 % (0.0-10.0); %Lymphocytes 12.1 % (21.0-51.0); %Monocytes 6.3 % (0.0-10.0); %Neutrophils 78.9 % (42.0-75.0); Hemoglobin 12.3 g/dL (12.0-16.0); Mean Corpuscular HGB CONC 31.7 g/dL (32.0-36.0); Mean Corpuscular Hemoglobin 29.8 pg (27.0-31.0); Mean Corpuscular Volume 93.9 fL (78.0-98.0); Mean Platelet Volume 7.1 fL (7.4-10.4); Platelet Count 401 thou/uL (130-400); RBC Distribution Width 14.1 % (11.5-14.5); Red Blood Cell (RBC) Count 4.14 mill/uL (4.20-5.40); White Blood Cell (WBC) Count 8.6 thou/uL (4.8-10.8)
[2022-04-27 06:38] LABS: Anion Gap 14 mmol/L (10-20); BUN (Urea Nitrogen) 19 mg/dL (9.8-20.1); Calc. Creatinine Clearance 94 mL/min (70-130); Calcium 8.7 mg/dL (7.8-10.44); Carbon Dioxide 23 mmol/L (23-31); Chloride 108 mmol/L (98-107); Glucose 122 mg/dL (83-110); Potassium 4.4 mmol/L (3.5-5.1); Sodium 141 mmol/L (136-145)
[2022-04-27] MEDS: Potassium Bicarbonate/Cit Ac 20 MEQ TAB PER TUBE SCH (09:31)
[2022-04-27] MEDS: Enoxaparin Sodium 40 MG/0.4 ML SYRINGE SC SCH (09:32)
[2022-04-27] MEDS: Famotidine 40 MG/4 ML VIAL SLOW IVP SCH ×2 (09:32→21:23)
[2022-04-27] MEDS ORDERED: Sodium Chloride 0.9% 1,000 ML IV SCH (18:15)
[2022-04-27] MEDS: Amiodarone 200 MG TAB PER TUBE SCH (21:23)
[2022-04-28] MEDS: Famotidine 40 MG/4 ML VIAL SLOW IVP SCH (09:25)
[2022-04-28] MEDS: Enoxaparin Sodium 40 MG/0.4 ML SYRINGE SC SCH (09:26)
[2022-04-28 09:29] VITALS: BMI 24.0
[2022-04-28] MEDS: Potassium Bicarbonate/Cit Ac 20 MEQ TAB PER TUBE SCH (09:32)
[2022-04-28] MEDS: Famotidine 20 MG TAB PO SCH (21:41)
[2022-04-28] MEDS: Amiodarone 200 MG TAB PER TUBE SCH (21:41)
[2022-04-29 07:21] LABS: #Eosinphils 0.4 thou/uL (0.0-0.7); #Lymphocytes 1.2 thou/uL (1.20-3.40); #Monocytes 0.6 thou/uL (0.11-0.59); #Neutrophils 7.2 thou/uL (1.40-6.50); %Basophils 0.1 % (0.0-1.0); %Eosinophils 3.9 % (0.0-10.0); %Lymphocytes 12.9 % (21.0-51.0); %Monocytes 6.3 % (0.0-10.0); %Neutrophils 76.7 % (42.0-75.0); Hemoglobin 12.4 g/dL (12.0-16.0); Mean Corpuscular HGB CONC 31.6 g/dL (32.0-36.0); Mean Corpuscular Hemoglobin 29.6 pg (27.0-31.0); Mean Corpuscular Volume 93.8 fL (78.0-98.0); Mean Platelet Volume 7.5 fL (7.4-10.4); Platelet Count 352 thou/uL (130-400); RBC Distribution Width 13.9 % (11.5-14.5); Red Blood Cell (RBC) Count 4.19 mill/uL (4.20-5.40); White Blood Cell (WBC) Count 9.4 thou/uL (4.8-10.8)
[2022-04-29 07:37] LABS: Anion Gap 14 mmol/L (10-20); BUN (Urea Nitrogen) 17 mg/dL (9.8-20.1); Calc. Creatinine Clearance 103 mL/min (70-130); Calcium 8.9 mg/dL (7.8-10.44); Carbon Dioxide 22 mmol/L (23-31); Chloride 105 mmol/L (98-107); Glucose 91 mg/dL (83-110); Potassium 4.6 mmol/L (3.5-5.1); Sodium 136 mmol/L (136-145)
[2022-04-29] MEDS: Enoxaparin Sodium 40 MG/0.4 ML SYRINGE SC SCH (09:42)
[2022-04-29] MEDS: Famotidine 20 MG TAB PO SCH ×2 (09:42→20:12)
[2022-04-29] MEDS: Amiodarone 200 MG TAB PER TUBE SCH (20:12)
[2022-04-30 06:42] LABS: #Eosinphils 0.3 thou/uL (0.0-0.7); #Lymphocytes 1.1 thou/uL (1.20-3.40); #Monocytes 0.6 thou/uL (0.11-0.59); #Neutrophils 5.5 thou/uL (1.40-6.50); %Basophils 0.2 % (0.0-1.0); %Eosinophils 3.9 % (0.0-10.0); %Monocytes 7.5 % (0.0-10.0); %Neutrophils 73.3 % (42.0-75.0); Hemoglobin 11.7 g/dL (12.0-16.0); Mean Corpuscular HGB CONC 32.5 g/dL (32.0-36.0); Mean Corpuscular Hemoglobin 29.8 pg (27.0-31.0); Mean Corpuscular Volume 91.7 fL (78.0-98.0); Mean Platelet Volume 7.4 fL (7.4-10.4); Platelet Count 372 thou/uL (130-400); RBC Distribution Width 13.9 % (11.5-14.5); Red Blood Cell (RBC) Count 3.94 mill/uL (4.20-5.40); White Blood Cell (WBC) Count 7.6 thou/uL (4.8-10.8)
[2022-04-30 07:05] LABS: Anion Gap 12 mmol/L (10-20); BUN (Urea Nitrogen) 15 mg/dL (9.8-20.1); CRP (Inflammatory) 4.36 mg/dL (= or < 0.5); Calc. Creatinine Clearance 99 mL/min (70-130); Carbon Dioxide 25 mmol/L (23-31); Chloride 103 mmol/L (98-107); Glucose 123 mg/dL (83-110); Potassium 4.1 mmol/L (3.5-5.1); Sodium 136 mmol/L (136-145)
[2022-04-30] MEDS: Morphine 2 MG/ML VIAL SLOW IVP PRN (09:05)
[2022-04-30] MEDS: Enoxaparin Sodium 40 MG/0.4 ML SYRINGE SC SCH (09:07)
[2022-04-30] MEDS: Famotidine 20 MG TAB PO SCH ×2 (09:07→21:07)
[2022-04-30] MEDS: Amiodarone 200 MG TAB PER TUBE SCH (21:07)
[2022-04-30] MEDS: Acetaminophen 650 MG/20.3 ML UDCUP PER TUBE PRN (21:08)
[2022-05-01] MEDS: Enoxaparin Sodium 40 MG/0.4 ML SYRINGE SC SCH (09:04)
[2022-05-01] MEDS: Famotidine 20 MG TAB PO SCH ×2 (09:04→21:25)
[2022-05-01] MEDS: Amiodarone 200 MG TAB PER TUBE SCH (21:25)
[2022-05-02] MEDS ORDERED: Lidocaine 1% w/Epinephrine 1:100K 20 ML VIAL FS SCH (08:00)
[2022-05-02] MEDS: Enoxaparin Sodium 40 MG/0.4 ML SYRINGE SC SCH (08:42)
[2022-05-02] MEDS: Famotidine 20 MG TAB PO SCH ×2 (08:43→21:58)
[2022-05-02] MEDS: Morphine 2 MG/ML VIAL SLOW IVP PRN (11:05)
[2022-05-02] MEDS: Amiodarone 200 MG TAB PER TUBE SCH (21:58)
[2022-05-02] MEDS: Acetaminophen 650 MG/20.3 ML UDCUP PER TUBE PRN (22:09)
[2022-05-03 09:07] LABS: #Eosinphils 0.5 thou/uL (0.0-0.7); #Lymphocytes 1.2 thou/uL (1.20-3.40); #Monocytes 0.5 thou/uL (0.11-0.59); #Neutrophils 5.1 thou/uL (1.40-6.50); %Basophils 0.2 % (0.0-1.0); %Eosinophils 6.3 % (0.0-10.0); %Lymphocytes 16.1 % (21.0-51.0); %Monocytes 7.1 % (0.0-10.0); %Neutrophils 70.3 % (42.0-75.0); Hemoglobin 12.9 g/dL (12.0-16.0); Mean Corpuscular HGB CONC 30.9 g/dL (32.0-36.0); Mean Corpuscular Hemoglobin 29.3 pg (27.0-31.0); Mean Corpuscular Volume 94.9 fL (78.0-98.0); Mean Platelet Volume 7.5 fL (7.4-10.4); Platelet Count 430 thou/uL (130-400); RBC Distribution Width 13.9 % (11.5-14.5); White Blood Cell (WBC) Count 7.2 thou/uL (4.8-10.8)
[2022-05-03] MEDS: Enoxaparin Sodium 40 MG/0.4 ML SYRINGE SC SCH (09:30)
[2022-05-03] MEDS: Famotidine 20 MG TAB PO SCH ×2 (09:31→20:33)
[2022-05-03 10:30] LABS: Chloride 103 mmol/L (98-107); Potassium 5.4 mmol/L (3.5-5.1); Sodium 135 mmol/L (136-145)
[2022-05-03 10:31] LABS: Calcium 8.9 mg/dL (7.8-10.44); Glucose 108 mg/dL (83-110)
[2022-05-03 10:33] LABS: Anion Gap 16 mmol/L (10-20); Carbon Dioxide 21 mmol/L (23-31)
[2022-05-03 10:34] LABS: Calc. Creatinine Clearance 99 mL/min (70-130)
[2022-05-03 10:35] LABS: BUN (Urea Nitrogen) 14 mg/dL (9.8-20.1)
[2022-05-03 16:07] LABS: Anion Gap 16 mmol/L (10-20); BUN (Urea Nitrogen) 15 mg/dL (9.8-20.1); Calc. Creatinine Clearance 95 mL/min (70-130); Calcium 9.7 mg/dL (7.8-10.44); Carbon Dioxide 25 mmol/L (23-31); Chloride 102 mmol/L (98-107); Glucose 105 mg/dL (83-110); Potassium 4.6 mmol/L (3.5-5.1); Sodium 138 mmol/L (136-145)
[2022-05-03] MEDS: Amiodarone 200 MG TAB PER TUBE SCH (20:33)
[2022-05-04] MEDS: Acetaminophen 650 MG/20.3 ML UDCUP PER TUBE PRN ×2 (02:28→06:28)
[2022-05-04] MEDS: Enoxaparin Sodium 40 MG/0.4 ML SYRINGE SC SCH (08:02)
[2022-05-04] MEDS: Famotidine 20 MG TAB PO SCH ×2 (08:03→20:10)
[2022-05-04] MEDS: Furosemide 20 MG TAB PO SCH (08:03)
[2022-05-04] MEDS: Amiodarone 200 MG TAB PER TUBE SCH (20:10)
[2022-05-05] MEDS: Famotidine 20 MG TAB PO SCH ×2 (08:50→20:21)
[2022-05-05] MEDS: Furosemide 20 MG TAB PO SCH (08:50)
[2022-05-05] MEDS: Enoxaparin Sodium 40 MG/0.4 ML SYRINGE SC SCH (08:50)
[2022-05-05] MEDS: Morphine 2 MG/ML VIAL SLOW IVP PRN (10:38)
[2022-05-05] MEDS: Amiodarone 200 MG TAB PER TUBE SCH (20:21)
[2022-05-05 21:26] VITALS: BP 129/82; TEMP 98.9
== END 2022-05-05 22:36 | DRG 356 ==
LOC: ERS 03:31 → 2NO 07:49 → T4-A 04-25 14:32
PROVIDERS: ADMIT Family Medicine; ATTEND Family Medicine
PROC: 3E03329 Introduction of Other Anti-infective into Peripheral Vein, Percutaneous Approach (ICD-10-PCS; 2022-04-17)
PROC: 0DP6XUZ Removal of Feeding Device from Stomach, External Approach (ICD-10-PCS; 2022-04-17)
PROC: 0DH63UZ Insertion of Feeding Device into Stomach, Percutaneous Approach (ICD-10-PCS; 2022-04-17)
PROC: 0W9F0ZZ Drainage of Abdominal Wall, Open Approach (ICD-10-PCS; principal; 2022-05-02)
DX: K94.22 Gastrostomy infection (principal); A41.9 Sepsis, unspecified organism; R65.20 Severe sepsis without septic shock; T83.518A Infection and inflammatory reaction due to other urinary catheter, initial encounter; N39.0 Urinary tract infection, site not specified; I48.20 Chronic atrial fibrillation, unspecified; I69.359 Hemiplegia and hemiparesis following cerebral infarction affecting unspecified side; L02.211 Cutaneous abscess of abdominal wall; K94.23 Gastrostomy malfunction; Z66 Do not resuscitate; Y84.6 Urinary catheterization as the cause of abnormal reaction of the patient, or of later complication, without mention of misadventure at the time of the procedure; Z20.822 Contact with and (suspected) exposure to COVID-19; Y83.8 Other surgical procedures as the cause of abnormal reaction of the patient, or of later complication, without mention of misadventure at the time of the procedure; E87.6 Hypokalemia; I10 Essential (primary) hypertension; R13.10 Dysphagia, unspecified; B95.2 Enterococcus as the cause of diseases classified elsewhere; Z79.899 Other long term (current) drug therapy; I69.320 Aphasia following cerebral infarction; I69.391 Dysphagia following cerebral infarction; Z74.01 Bed confinement status
CPT/HCPCS: 36415; 71045; 74018; 74177; 80048; 80053; 81003; 81015; 83605; 83690; 83735; 84100; 84145; 85025; 85610; 86140; 87040; 87070; 87077; 87086; 87186; 87205; 93005; 96361; 96365; 96366; 96367; 96368; 96375; J0692; J1650; J2270; J2405; J2543; J3370; J3475; J3480; J3490; J7030; J7050; Q9967; S0028; U0003; U0005